=== PATIENT | male | born 1950 | race Caucasian/White ===

== ENCOUNTER 2019-01-03 04:52 | Inpatient (IN) | payer OTHER ==
[~2019-01-03] VITALS: Ht 180.3 cm; Wt 79.5 kg
--- NOTE | 2019-01-03 05:14 | NUR ---
LUISA WAS BROUGHT IN BY EMS FROM [facility] FOR COMPLAINT OF CHEST PAIN. NO ACUTE DISTRESS AT THIS TIME.
[2019-01-03] MEDS ORDERED: ASPIR 8181 MG PO (05:50)
[2019-01-03] MEDS ORDERED: LIPI20 PO (05:50)
[2019-01-03] MEDS ORDERED: CHLORPROMAZINE100 M2 PO (05:51)
[2019-01-03 05:53] LABS: BASOPHIL % 0.5 % (0-2); PLATELET COUNT 178 x10^3mcL (130-400); RED CELL DISTRIBUTION WIDTH 12.7 % (11.5-14.5)
[2019-01-03] MEDS ORDERED: LANTUS SOLOS100 U/M1 SQ (05:53)
[2019-01-03] MEDS ORDERED: ISOSORBIDE MONO30 MG PO (05:53)
[2019-01-03] MEDS ORDERED: LISINOPRIL20 MG PO (05:54)
[2019-01-03] MEDS ORDERED: METFORMIN HCL1000 MG PO (05:54)
[2019-01-03 05:55] LABS: CALCIUM 9.2 mg/dL (8.5-10.1); CARBON DIOXIDE 28.2 mmol/L (21-32); CHLORIDE SERUM 100 mmol/L (98-107); CREATININE SERUM 0.9 mg/dL (0.7-1.3); GFR1 > 60 mL/min; GLUCOSE SERUM 291 mg/dL (74-106); POTASSIUM SERUM 4.7 mmol/L (3.5-5.1); SODIUM SERUM 136 mmol/L (136-145)
[2019-01-03] MEDS ORDERED: GOOD SENSE OMEP20 MG PO (05:55)
[2019-01-03] MEDS ORDERED: APAP500 MG PO (05:56)
[2019-01-03] MEDS ORDERED: ASSORTED FRUIT G4 GM PO (05:57)
[2019-01-03] MEDS ORDERED: NITROSTAT0.4 MG SL (05:58)
[2019-01-03] MEDS ORDERED: INSULIN (05:59)
[2019-01-03 06:00] LABS: ALBUMIN 3.7 g/dL (3.4-5.0); ALKALINE PHOSPHATASE 82 U/L (46-116); ALT/SGPT 151 U/L (16-63); AST/SGOT 35 U/L (15-37); BILIRUBIN TOTAL 0.5 mg/dL (0.20-1.00); TOTAL PROTEIN, SERUM 7.2 g/dL (6.4-8.2)
--- NOTE | 2019-01-03 06:11 | NUR ---
PATIENT SLEEPING, EASILY AWAKEN.EXPRESS 9/10 MIDSTERNAL CHEST PAIN WHEN AWAKEN.
--- NOTE | 2019-01-03 06:22 | NUR ---
AT THE BEDSIDE.
--- NOTE | 2019-01-03 06:49 | NUR ---
PATIENT ESEEN SHAKING HIS LEGS AND HANDS, CALL TO SAY HIS BLOOD SUGAR IS LOW. REQUESTED JELLO. FINGERSTICK BLOOD SUGAR IS 286 MG/DL. BREAKFAST ORDERED. PATIENT VOID AND URINE WAS SENT TO LAB.
--- NOTE | 2019-01-03 07:14 | NUR ---
SALIMNE LOCK INSERTED. ADMISSION ORDER RECEIVED FROM DR VEGA.
--- NOTE | 2019-01-03 07:32 | NUR ---
RECEIVED REPORT FROM SILVERIO DATA ENTRY ASSISTANT RN
--- NOTE | 2019-01-03 07:35 | NUR ---
PT AWAKE AND ALERT. PT ABLE TO ANSWER QUESTIONS APPROPRIATELY. PT GIVEN BREAKFAST TRAY AND ATE 100%. PT ON FULL CM. NAD. RESP E/U. VITALS STABLE AT THIS TIME.
[2019-01-03 07:50] LABS: AMPHETAMINE QUAL UR NONE DETECTED (See below)
--- NOTE | 2019-01-03 09:08 | NUR ---
PT URINATED ON WOUNDS, INFORMED, WOUNDS CLEANSED THROUGHLY WITH NS
--- NOTE | 2019-01-03 09:38 | NUR ---
PT MEDICATED PER DOCTORS ORDERS
--- NOTE | 2019-01-03 10:03 | NUR ---
PT MEDICATED PER DOCTORS ORDERS
--- NOTE | 2019-01-03 10:16 | NUR ---
pt reports his constant leg and arm movements are from tardive dyskonesia
[2019-01-03 12:02] LABS: MAGNESIUM 1.8 mg/dL (1.8-2.4)
[2019-01-03 12:05] LABS: CHOLESTEROL/HDL RATIO 3.1
[2019-01-03 12:26] VITALS: BP 105/73
[2019-01-03 12:35] VITALS: BP 105/73
--- NOTE | 2019-01-03 14:16 | NUR ---
NORCO PO GIVEN (SEE EMAR) FOR HOOD KNEE PAIN 06/13
--- NOTE | 2019-01-03 16:05 | NUR ---
PT PULLED SL ON THE LH; RESITE WITH ANGIO 22 ON THE RH X1 ATTEMPT AND KEPT ON SL.
[2019-01-03 17:07] VITALS: BP 110/75
--- NOTE | 2019-01-03 17:29 | NUR ---
PT REFUSED INSULIN SLIDING SCALE COVERAGE; EXPLAINED TO PT THE COMPLICATIONS OF HAVING HIGH BLOOD SUGAR AND VERBALIZED UNDERSTANDING BUT STILL REFUSED TO RECEIVE SLIDING SCALE COVERAGE.
--- NOTE | 2019-01-03 18:17 | NUR ---
REG INSULIN SLIDING COVERAGE 8 UNITS GIVEN AFTER HE REQUESTED TO HAVE IT THIS TIME. WILL CONITNUE TO MONITOR STATUS.
--- NOTE | 2019-01-03 19:10 | NUR ---
PT RECIEVED FROM THE DAY SHIFT RN. NO ACUTE DISTRESS NOTED. PT IS AGITATED AND ANGRY AT THIS TIME. NO SOB NOTED, PT HAS SLURRED SPEECH, PT IS ALERT AND ORIENTED X4, NO SOB NOTED. PT HAS COMPLAINT OF PAIN AND WILL MEDICATE WITH PRN PAIN MEDICATION, SAFETY AND COMFORT MEASURES MAINTAINED, BED IN LOWEST POSITION, CONTACT ISOLATION IN PLACE. WILL CONTINUE TO MONITOR AT THIS TIME.
[2019-01-03 21:05] VITALS: BP 117/74
--- NOTE | 2019-01-03 23:15 | NUR ---
PT IS AWAKE AND ALERT X4, PT IS AWAKE AND IN BED WATCHING TV, PT HAS BEEN ANXIOUS AND AGITATED, PT SPEECH IS SLURRED AND GARBLED, PRN MORPHINE WAS GIVEN EARLIER IN SHIFT ( SEE MAR) PT HAS NO COMPLAINT OF PAIN AT THIS TIME. SAFETY AND COMFORT MEASURES MAINTAINED, BED IN LOWEST POSITION, CALL LIGHT WITHIN REACH, WILL CONTINUE TO MONITOR.
--- NOTE | 2019-01-04 01:17 | NUR ---
PT IS RESTING IN BED WITH EYES CLOSED AT THIS TIME. NO ACUTE DISTRESS NOTED, NO SOB NOTED, NO FACIAL GRIMACING NOTED. SAFETY AND COMFORT MEASURES MAINTAINED, BED IN LOWEST POSITION, CALL LIGHT WITHIN REACH.
--- NOTE | 2019-01-04 03:05 | NUR ---
PT IS RESTING IN BED WITH EYES CLOSED AT THIS TIME. NO ACUTE DISTRES NOTED, NO SOB NOTED, SAFETY AND CMOFORT MEASURES MAINTAINED, BED IN LOWEST POSIITON, CALL LIGHT WITHIN REACH.
--- NOTE | 2019-01-04 04:31 | NUR ---
PT IS AWAKE AND ALERT AND HAS COMPLAINT OF PAIN AND ANXIETY, PT MEDICATED WITH PRN MORPHINE AND ATIVAN (SEE MAR).
[2019-01-04 05:02] VITALS: BP 111/64
--- NOTE | 2019-01-04 06:05 | NUR ---
PT HAS SLEPT IN INTERMITTENT INTERVALS THROUGHOUT THE SHIFT, PT HAS BEEN AGITATED AND ANXIOUS AT TIMES. PRN PAIN MEDICATION GIVEN FOR COMPLAINT OF CHEST PAIN. PT HAS GARBLED AND SLURRED SPEECH, NO ACUTE DISTRESS NOTED, NO SOB, NO COMPLAINT OF PAIN AT THIS TIME. SAFETY AND COMFORT MEASURES MAINTAINED, BED IN LOWEST POSITION, CALL LIGHT WITHIN REACH, WILL ENDORSE CONTINUITY OF CARE TO THE ONCOMING RN.
[2019-01-04 07:50] LABS: CARBON DIOXIDE 27.8 mmol/L (21-32); CHLORIDE SERUM 100 mmol/L (98-107); CREATININE SERUM 0.8 mg/dL (0.7-1.3); GFR1 > 60 mL/min; GLUCOSE SERUM 142 mg/dL (74-106); POTASSIUM SERUM 4.2 mmol/L (3.5-5.1); SODIUM SERUM 137 mmol/L (136-145)
--- NOTE | 2019-01-04 07:55 | NUR ---
RECEIVED PATIENT SITTING UP IN BED A/O X4, ABLE TO MAKE NEEDS KNOWN AND FOLLOW COMMANDS. TELE # [address], PATIENT C/O PRESSURE LIKE CHEST PAIN 04/13, MEDICATED IN AM BY NOC NURSE, STATES PAIN IS TOLERABLE AT THIS TIME, WILL MONITOR AND MEDICATE NEEDED. BREATHING EVEN UNLABBORED ON RA, DENIES SOB, NO DISTRESS NOTED. IV TO RH FLUSHED WELL WITH 10 ML NS, INTACT AND PATENT. PATIENT IS FROM [facility], PROTECTIVE CUSTODY X2 AT BEDSIDE. PATIENT IS CALM WITH CARE. INSTRUCTED TO CALL FOR ASSISTANCE IF NEEDED. SAFETY PRECAUTIONS IN PLACE. WILL MONITOR.
[2019-01-04 08:44] LABS: BASOPHIL % 0.4 % (0-2); PLATELET COUNT 174 x10^3mcL (130-400)
--- NOTE | 2019-01-04 08:50 | NUR ---
PER FLIGHT ENGINEER PATIENT FOUND LAYING ON THE RESTROOM FLOOR, SHACKLED TO BILATERAL ANKLES. PATIENT STATED HE WAS TRYING TO CLEAN HIMSELF AND FELL FORWARD, PROTECTIVE CUSTODY X2 OUTSIDE OF RESTROOM DOOR. RECEIVED PATIENT NOW LAYING BACK IN BED, MADE COMFORTABLE. VSS: BP 119/72, HR 72. PATIENT C/O NECK PAIN 06/13, WILL MEDICATE PRN FOR PAIN. SHACKLE TO BILATERAL ANKLES IN PLACE, ALL NEEDS ATTENDED TO. SAFETY PRECAUTIONS IN PLACE.
--- NOTE | 2019-01-04 08:55 | NUR ---
MEDICATED PATIENT WITH MORPHINE 2 MG IVP (SEE eMAR), ALL MORNING MEDICATIONS GIVEN, TOLERATED WELL. ALL NEEDS ATTENDED TO, SAFETY PRECAUTIONS MAINTAINED. WILL MONITOR.
--- NOTE | 2019-01-04 09:45 | NUR ---
PATIENT RESTING COMFORTABLY IN BED FILLING OUT MENU, NO DISTRESS NOTED. PROTECTIVE CUSTODY X2 REMAIN AT BEDSIDE. SAFETY PRECAUTIONS IN PLACE. WILL MONITOR.
[2019-01-04 09:51] VITALS: BP 119/72
--- NOTE | 2019-01-04 09:55 | NUR ---
DR. VEGA MADE AWARE PATIENT WAS FOUND ON FLOOR AND C/O NECK PAIN, RECEIVED T.O FOR XRAY CERVICAL SPINE. WILL PLACE T.O. ALL QUESTIONS AND CONCERNS ADDRESSED.
--- NOTE | 2019-01-04 12:15 | NUR ---
PATIENT SEEN RESTING IN BED COMFORTABLY WITH EYES CLOSED, NO DISTRESS NOTED. BLOOD SUGAR 313, 8 UNITS OF REGULAR INSULIN GIVEN PER SLIDING SCALE. PATIENT ASKING WHAT TIME PROCEDURE WILL BE TOMORROW AND PATIENT INFORMED STRESS TEST WILL BE TOMORROW 01/05/19 AT 1000. PATIENT VERBALIZED UNDERSTANDING, ALL QUESTIONS AND CONCERNS ADDRESSED, SAFETY PRECAUTIONS MAINTAINED. WILL MONITOR.
--- NOTE | 2019-01-04 12:40 | NUR ---
DR. VEGA IN TO SEE PATIENT.
--- NOTE | 2019-01-04 12:50 | NUR ---
PATIENT TAKEN DOWN TO RADIOLOGY.
--- NOTE | 2019-01-04 13:10 | NUR ---
PATIENT BACK FROM XRAY- PER COLLECTION TELLER PATIENT REFUSED XRAY C-SPINE, ONLY PARTIAL WAS DONE. CN MADE AWARE.
[2019-01-04 13:23] VITALS: BP 123/77
--- NOTE | 2019-01-04 14:50 | NUR ---
DR. VEGA MADE AWARE OF XRAY CERVICAL SPINE FINDINGS- LIMITED FINDINGS DUE TO PATIENT REFUSING TO COMPLETE EXAM. RECEIVED T.O FOR CT CERVICAL SPINE WITHOUT CONTRAST. ALL QUESTIONS AND CONCERNS ADDRESSED. WILL CARRY OUT ORDER.
--- NOTE | 2019-01-04 15:28 | NUR ---
AT 1525: PATIENT C/O CHEST PRESSURE AND BILATERAL LEG PAIN 8/10, MEDICATED WITH MORPHINE 2 MG IVP (SEE eMAR). ALL NEEDS ATTENDED TO. SAFETY PRECAUTIONS IN PLACE. AT 1528: PATIENT ALSO C/O FEELING ANXIOUS, MEDICATED WITH ATIVAN PO (SEE eMAR). ALL NEEDS ATTENDED TO. SAFETY PRECAUTIONS IN PLACE. WILL MONITOR.
--- NOTE | 2019-01-04 15:50 | NUR ---
PATIENT TAKEN DOWN TO CT SCAN.
--- NOTE | 2019-01-04 16:05 | NUR ---
PATIENT BACK FROM CT SCAN, RESTING COMFORTABLY IN BED, NO DISTRESS NOTED. SHACKLE TO LLE. PROTECTIVE CUSTODY X2 AT BEDSIDE. SAFTEY PRECAUTIONS MAINTAINED. WILLM ONITOR.
--- NOTE | 2019-01-04 17:03 | NUR ---
PATIENT SITTING UP AT EDGE OF BED, NO DISTRESS NOTED. BS 200, ADMINISTERED 2 UNITS OF REGULAR INSULIN PER SLIDING SCALE. ALL NEEDS ATTENDED TO. SAFETY PRECAUTIONS IN PLACE. PROTECTIVE CUSTODY X2 AT BEDSIDE.
[2019-01-04 17:37] VITALS: BP 100/67
--- NOTE | 2019-01-04 18:41 | NUR ---
DR. VEGA MADE AWARE OF CT CERVICAL SPINE RESULTS- NO FRACTURES NOTED. NO NEW ORDERS RECEIVED.
--- NOTE | 2019-01-04 19:30 | NUR ---
PT RECIEVED FROM THE DAY SHIFT RN, PT IS ALERT AND ORIENTED X3, NO ACUTE DISTRESS NOTED, PT HAS GARBLED AND SLURRED SPEECH, PT IS CALM AND COOPERATIVE AT THIS TIME. SAFETY AND COMFORT MEASURES MAINTAINED, BED IN LOWEST POSITION, CALL LIGHT WITHIN REACH.
--- NOTE | 2019-01-04 20:49 | NUR ---
PT BG CHECK IS 211, 30 UNITS LEVEMIR GIVEN, HOLDING REGULAR INSULIN DUE TO PT BEING NPO AT 0000 ON 01/05/19 FOR STRESS TEST SCHEDULED FOR TOMORROW MORNING.
[2019-01-04 21:01] LABS: microscopic required? NO
[2019-01-04 21:12] VITALS: BP 99/51
[2019-01-04 21:13] LABS: urine erythrocyte NEGATIVE (NEGATIVE)
--- NOTE | 2019-01-04 22:58 | NUR ---
PT IS RESTING IN BED WITH EYES CLOSED AT THIS TIME, NO ACUTE DISTRESS NOTED, NO COMPLAINT OF PAIN AT THIS TIME. NO SOB NOTED, PT HAS BEEN ALERT AND ORIENTED X4, SAFETY AND COMFORT MEASURES MAINTAINED, BED IN LOWEST POSITION, CALL LIGHT WITHIN REACH.
--- NOTE | 2019-01-05 | NUR ---
PT PUT ON NPO FOR RFS STRESS TEST. PT IS IN BED RESTING WITH EYES CLOSED AT THIS TIME. NO FACIAL GRIMACING NOTED, NO SOB NOTED, PT HAS BEEN CALM AND COOPERATIVE WITH CARE, SAFETY AND COMFORT MEASURES MAINTAINED, BED IN LOWEST POSITION, CALL LIGHT WITHIN REACH.
--- NOTE | 2019-01-05 01:43 | NUR ---
PT IS RESTING IN BED WITH EYES CLOSED AT THIS TIME. NO ACUTE DISTRESS NOTED, NO SOB NOTED, PT HAS BEEN CALM AND COOPERATIVE WITH CARE. NO FACIAL GRIMACING NOTED. SAFETY AND COMFORT MEASURES MAINTAINED, BED IN LOWEST POSITION, PT SHACKLED TO THE BED, 2 GUARDS AT THE BEDSIDE, CALL LIGHT WITHIN REACH.
--- NOTE | 2019-01-05 02:41 | NUR ---
PT IS RESTING IN BED WITH EYES CLOSED AT THIS TIME. NO ACUTE DISTRESS NOTED NO FACIAL GRIMACING NOTED, PT SHACKLED TO THE BED, 2 GUARDS AT THE BEDSIDE. SAFETY AND COMFORT MEASURES MAINTAINED, BED IN LOWEST POSTIION, CALL LIGHT WITHIN REACH, WILL CONTINUE TO MONITOR AT THIS TIME.
--- NOTE | 2019-01-05 03:10 | NUR ---
PT COMPLAINT OF CHEST PAIN, PT HAS STATED PAIN IS PRESSURE AND IS 10/10 PAIN, PT MEDICATED WITH MORPHINE IVP 2MG ( SEE MAR). PT REQUESTED ATIVAN IVP WELL. EXPLAINED TO PATIENT PROTOCOL ON ATIVAN WITH MORPHINE AND CANNOT BE GIVEN AT THE SAME TIME. PT REQUESTED TO SPEAK TO CHARGE NURSE AND WAS ACCUSATORY OF NURSE NOT DOING PROPER FLUSHING TECHNIQUE OF IV SITE. IV SITE NO WELTS OR INFILITRATION WAS SEEN. IV FLUSHED PROPERLY. PT WOULD TENSE HAND DURING THE FLUSHING OF THE IV, ASKED THE PT NUMEROUS TIMES TO PLEASE RELAX THE HAND TO MAKE SURE THE IV WILL FLUSH PROPERLY. PT REQUESTED TO SPEAK TO CHARGE NURSE. CHARGE NURSE NOTIFIED AND WENT TO SPEAK TO PATIENT. WILL CONTINUE TO MONITOR AT THIS TIME.
--- NOTE | 2019-01-05 05:17 | NUR ---
PT HAS RESTED IN INTERMITTENT INTERVALS THROUGHOUT THE SHIFT, PT HAS BEEN ANGRY AND AGITATED WITH CARE THROUGHOUT THE SHIFT, PT HAS BEEN NON COMPLIANT WITH CARE AND PROTOCOL. PT IS SHACKLED AT THE BEDSIDE WITH 2 GUARDS PRESENT. PT HAS BEEN ALERT AND ORIENTED X4, PT USES URINAL AT THE BEDSIDE, PT PLACED ON NPO AT 0000 01/05/19 FOR PROCEDURE RFS STRESS TEST. CHARGE NURSE MADE AWARE OF PT NON COMPLIANCE, SAFETY AND COMFORT MEASURES MAINTAINED, BED IN LOWEST POSITION, CALL LIGHT WITHIN REACH, WILL ENDORSE CONTINUITY OF CARE TO THE ONCOMING RN.
[2019-01-05 05:23] VITALS: BP 99/49
--- NOTE | 2019-01-05 05:40 | NUR ---
PT WAS INSTRUCTED EARLIER IN SHIFT THAT PT WOULD BE NPO AT 0000 ON 01/05/19 DUE TO RFS STRESS TEST. DIRECTOR INTELLIGENCE ANALYSIS PROGRAMS DISCOVERED PT HAD FOOD IN THE ROOM, PER THE GUARDS REPORT, PT TOOK THE FOOD FROM THE BEDSIDE DRAWER AND PT WAS FOUND EATING THE FOOD. PT STATES " NO ONE TOLD ME I WASNT ALLOWED TO EAT, NO ONE TOLD ME I WAS NPO" RN MADE AWARE AND CHARGE NURSE MADE AWARE, WILL ENDORSE TO THE ONCOMING RN.
--- NOTE | 2019-01-05 06:07 | NUR ---
PER LOADER UNLOADER REPORT PT CALLED LOADER UNLOADER AND ASKED TO BE CHANGED, PT HAS URINAL AT THE BEDSIDE THAT HAS BEEN USED ALL THROUGHOUT THE SHIFT, PT BECAME INCONTINENT AND STATED TO PT "COME AND CHANGE ME". LOADER UNLOADER CHANGED PT. CHARGE NURSE AWARE OF SITUATION.
--- NOTE | 2019-01-05 08:00 | NUR ---
ALERT AND ORIENTED. GARBLED SPEECH D/T POOR DENTITION. NPO FOR STRESS TEST THIS AM. [facility] PT WITH LEFT ANKLE SHACKLED TO BED. 2 GUARDS AT BEDSIDE. SL TO RT HAND PATENT.TELE # 20 SR W PVC'S. URINAL AT BEDSIDE. INCONTINENT OF URINE SOMETIMES. PAIN IN BILAT KNEES IMPROVED AFTER RECEIVING MORPHINE. ASKING FOR MORE PAIN MED. BREATHING FREELY ON RA. SELF FEEDER. ABLE TO TURN AND REPOSITION SELF IN BED. CALL LIGHT WITHIN REACH.
[2019-01-05 08:53] VITALS: BP 135/54
--- NOTE | 2019-01-05 10:42 | NUR ---
SPOKE WITH CIVIL ENGINEERING DESIGNER AT [employer]. PT HAD COFFEE AND BREAKFAT AT 0500 THIS AM. STRESS TEST WILL BE DELAYED UNTIL 1300 TODAY D/T CAFFEINE INTAKE. PT MAY HAVE LIGHT BREAKFAST. XRAYS OF LEFT AND RIGHT KNEE COMPLETED.
--- NOTE | 2019-01-05 11:54 | NUR ---
IV TO RT HAND LEAKING AND DC'D. NEW IV SITE TO LEFT FA.
[2019-01-05 13:11] VITALS: BP 182/137
--- NOTE | 2019-01-05 13:15 | NUR ---
PT SAYS HE HAD STRESS TEST PREFORMED AT [facility] 2 WEEEKS AGO. [place] CHARGE NURSE SPOKE WITH STAFF IN [facility]. WAS TOLD ALL PT HAD 2 WEEKS AGO WAS CARDIAC ECHO. PT IS CERTAIN HE HAD SOME SORT OF IV CONTRAST THAT CUASED HIM CHEST PAIN AND TEST WAS NOT COMPLETED. PT DOES NOT WANT TO HAVE STRESS TEST UNTIL SPEAKING TO [facility]. MANAGEMENT ACCOUNTANT SPOKE WITH DR. MART. HE WILL BE UP TO FLOOR TO SPEAK WITH PT.
--- NOTE | 2019-01-05 13:40 | NUR ---
DR. MART CAME INTO [facility] PT. PT WENT DOWN FOR STRESS TEST.
--- NOTE | 2019-01-05 14:12 | NUR ---
RENATO STAFF FROM [employer] CAME IN THE STATION & MADE KNOW ON THE PHONE THAT PT DID NOT COMPLETE HIS STRESS TEST AND HAS REFUSED TO COMPLETE THE TEST. WAS AT THE [employer] DURING PT REFUSAL PER RENATO. WILL AWAIT FROM FURTHER ORDER. ALESSANDRA ANDRE ASSIGNED TO THIS PT MADE AWARE OF ABOVE.
--- NOTE | 2019-01-05 14:47 | NUR ---
RECEIVED A CALL FROM AND HE SAID PT IS GOING BACK TO [facility]. ALESSANDRA RN ASSIGNED TO THIS PT MADE AWARE OF ABOVE.
[2019-01-05 15:29] VITALS: BP 100/57
[2019-01-05 15:39] VITALS: BP 100/57
--- NOTE | 2019-01-05 16:46 | NUR ---
REPORTED TO DR. VEGA XR RT KNEE CAME BACK SOFT TISSUE SWELLING HIGH DEGREE OF CLINICAL SUSPECION FOR OCCULT FRACTURE. F/U EXAM IN 7-10 DAYS RECOMMENDED.ALSO INFORMED DR. VEGA PT IS MAKING THREATS TO GUARDS THEY WILL DO ANYTHING TO ANYONE TO STAY HERE AT [facility] [place]. DR. VEGA SAID TO SEND PT BACK.
--- NOTE | 2019-01-05 18:05 | NUR ---
DC'D BACK TO [facility]. TO F/U W/PCP RE: RT KNEE POSS FX. ALL DC INSTRUCTIONS REVIEWED WITH AND SIGNED BY PT. IV DC'D TELE # 20 RETURNED TO TELE STATION.
== END 2019-01-05 18:20 | disposition other institution (70) | DRG 313 ==
LOC: ED 04:52 → DU 07:17
PROVIDERS: Emergency Medicine; ADMIT Internal Medicine
DX: R07.89 Other chest pain (principal); I24.9 Acute ischemic heart disease, unspecified; I25.10 Atherosclerotic heart disease of native coronary artery without angina pectoris; I10 Essential (primary) hypertension; E11.65 Type 2 diabetes mellitus with hyperglycemia; E78.5 Hyperlipidemia, unspecified; I25.2 Old myocardial infarction; Z86.73 Personal history of transient ischemic attack (TIA), and cerebral infarction without residual deficits; Z87.11 Personal history of peptic ulcer disease; Z79.82 Long term (current) use of aspirin; Z79.899 Other long term (current) drug therapy; Z90.49 Acquired absence of other specified parts of digestive tract; Z87.891 Personal history of nicotine dependence
CPT/HCPCS: 82962; 83880; 90658; 90732; A9500; J1815; J2060; J2270; J2405; J2785; Q0092